=== PATIENT | female | born 1960 | race Caucasian/White ===

== ENCOUNTER 2016-11-16 16:29 | Emergency (ER) | payer OTHER ==
[~2016-11-16 16:29] MED LIST: CHLORTHALIDONE25 MG PO; FISH OIL PO; LIPITOR20 MG PO; LOSARTAN POTASS25 MG PO; MULTIPLE VITAMIN PO; SYNTHROID88 MCG PO; VITAMIN E200 UNIT PO
--- NOTE | 2016-11-16 17:16 | DIAGNOSTIC IMAGING REPORT ---
PROCEDURE: XR CHEST 1 VIEW INDICATION: CHEST PAIN TECHNIQUE: Portable AP view 04:40 p.m. COMPARISON: None. FINDINGS: Mild bibasilar scarring. Heart and mediastinum are normal. Mild dextroconvex thoracolumbar spine scoliosis. IMPRESSION: 1. Mild bibasilar scarring.
--- NOTE | 2016-11-16 18:43 | ED ORDER SUMMARY ---
..... Patient: RON MORTON OrderSheet [facility] VisitID: [id number] [place] [address] 56y, F Registration Date/Time: 11/16/2016 ORDER SHEET Weight: 63.5 kg (stated) Allergies: No Known Drug Allergy GENERAL ORDERS: Chest 1V Urgent (16:46 11/16/2016 Jorge LEIGH) (Ack 16:49 Krysta ER Tech1) (16:59 KKnebel R.N.) Rib Chopper (Continuous) (16:46 11/16/2016 Jorge LEIGH) (Ack 16:49 Krysta ER Tech1) (16:59 KKnebel R.N.) CBC w Diff Urgent (16:47 11/16/2016 Jorge LEIGH) (Ack 16:49 Krysta ER Tech1) (16:59 KKnebel R.N.) CMP Urgent (16:47 11/16/2016 Jorge LEIGH) (Ack 16:49 Krsyta ER Tech1) (16:59 KKnebel R.N.) UA-Culture if indicated Urgent (16:47 11/16/2016 Jorge LEIGH) (Ack 16:49 Krysta VALENZUELA Tech1) (17:13 KKnebel R.N.) PT with INR Urgent (16:47 11/16/2016 Jorge LEIGH) (Ack 16:49 Krysta VALENZUELA Tech1) (16:59 KKnebel R.N.) PTT Urgent (16:47 11/16/2016 Jorge LEIGH) (Ack 16:49 Krysta VALENZUELA Tech1) (16:59 KKnebel R.N.) BNP Urgent (16:47 11/16/2016 Jorge LEIGH) (Ack 16:49 Krysta VALENZUELA Tech1) (16:59 KKnebel R.N.) D-Dimer Urgent (16:47 11/16/2016 Jorge LEIGH) (Ack 16:49 Krysta VALENZUELA Tech1) (16:59 KKnebel R.N.) Amylase Urgent (16:47 11/16/2016 Jorge LEIGH) (Ack 16:49 Krysta ER Tech1) (16:59 KKnebel R.N.) Lipase Urgent (16:47 11/16/2016 Jorge LEIGH) (Ack 16:49 IJurca ER Tech1) (16:59 KKnebel R.N.) Oxygen (2 L/min) (NC) (16:47 11/16/2016 Jorge LEIGH) (Ack 16:49 Krysta ER Tech1) (16:59 KKnebel R.N.) Pulse oximeter (16:47 11/16/2016 Jorge LEIGH) (Ack 16:49 RASHIurca ER Tech1) (16:59 MARSHALLnebel R.N.) EKG - ER Stat (16:47 11/16/2016 Jorge LEIGH) (Ack 16:49 Krysta Posada1) (16:59 KKnebel R.N.) TSH Urgent (17:39 11/16/2016 Jorge LEIGH) (Ack 17:44 Krysta ER Tech1) (18:08 KKnebel R.N.) CPK Urgent (18:13 11/16/2016 Jorge LEIGH) (18:21 KKnebel R.N.) Troponin-I Urgent (18:13 11/16/2016 Jorge LEIGH) (18:21 KKnebel R.N.) MEDICATION ORDERS: Aspirin PO 325 mg (NOW) (16:47 11/16/2016 Jorge LEIGH) (17:14 MARSHALLnepaulina R.N.) IV FLUIDS: IV Saline Lock (16:47 11/16/2016 Jorge LEIGH) (16:59 MARSHALLnebel R.N.) ORDER SHEET NOTES: [Electronically signed by Arnie Gee MD (18:54 11/16/2016)] [Electronically signed by Bhumika Loera R.N. (11:41 11/23/2016)] [Electronically locked/signed by Bhumika Loera R.N. (11:41 11/23/2016)]
--- NOTE | 2016-11-16 18:43 | ED NURSING NOTES ---
Clinical Report - Nurses [facility] [address] [place] [address] 11/16/2016 16:30 Patient: RON MORTON TRIAGE Triage time 16:34 Nov 16 2016. Acuity: LEVEL 3. Chief Complaint: CHEST PAIN. Alert. No acute distress. SEPSIS SCREEN: Sepsis Screen: negative. Negative (no infection suspected/documented). HAROON COMA SCORE: Haroon Coma Scale: 15- eyes open spontaneously (4); best verbal response- oriented x 4 (5); best motor response- obeys commands (6). --16:41 Bhumika Loera R.N. 16:34 11/16/16. BP: 174/90. HR: 91. RR: 16. O2 saturation: 100%. Temp: 98.3 F. Pain level now: 10/29. --16:41 Bhumika Loera R.N. Weight: 63.5 kg stated. Height/Length: 68 inches Per Patient. BMI: 21.3. --16:38 Bhumika Loera R.N. Medications Levothyroxine Sodium Oral 88 mcg, daily. --16:35 Bhumika Loera R.N. Losartan Potassium Oral (Tablet 50 mg) 1 tablet, daily. --16:37 Bhumika Loera R.N. Chlorthalidone Oral (Tablet 25 mg) 1 tablet, daily. --16:37 Bhumika Loera R.N. Atorvastatin Calcium Oral (Tablet 80 mg) 1 tablet, daily. --16:37 Bhumika Loera R.N. Medication/allergy information source: the patient. --16:41 Bhumika Loera R.N. Allergies No Known Drug Allergy. --11:40 Bhumika Loera R.N. History Arrived by private vehicle. Historian: patient. Accompanied by family. Onset. (about 3 days ago). ( pt states that pain started about three days ago and now has moved to the back as well. pt states that she feels like her heart is pounding at times.). Treatment FLEET SALES ASSOCIATE: None. PAST MEDICAL HX: Immunizations: up-to-date. The patient is post-menopausal. Denies current . SOCIAL HX: Never smoker. Occasional alcohol use. No drug use. No infectious disease exposure. SELF HARM ASSESSMENT: A self harm assessment was performed. The patient answered "no" to the question "Do you have thoughts of harming or killing yourself?". FALL RISK ASSESSMENT: Fall risk assessment completed. No fall risk identified. NUTRITIONAL RISK ASSESSMENT: The nutritional risk assessment revealed no deficiencies. FUNCTIONAL ASSESSMENT: Functional assessment: no impairments noted. LEARNING NEEDS ASSESSMENT: The learning needs assessment revealed no barriers. ABUSE ASSESSMENT: Abuse assessment: The patient was asked "Do you feel safe in your home?". SKIN INTEGRITY ASSESSMENT: Skin integrity risk assessment completed. No skin integrity risk identified. --16:41 Bhumika Loera R.N. PROBLEMS: Hypercholesterolemia. Hypothyroidism. Hypertension. --16:38 Bhumika Loera R.N. ADDITIONAL SURGERIES: Eye surgery. --16:38 Bhumika Loera R.N. Interventions ID band on patient. To room. --16:41 Bhumika Loera R.N. PHYSICAL ASSESSMENT GENERAL / NEURO / PSYCH: Alert. Oriented X 4. Appears in no acute distress. RESPIRATORY: Respirations not labored. Sternal tenderness. Breath sounds within normal limits. CVS: Heart sounds within normal limits. Pulses within normal limits. Capillary refill less than 2 seconds. GI / : Abdomen soft and nontender. EXTREMITIES: No lower extremity edema. SKIN: Skin is warm and dry. --16:43 Bhumika Loera R.N. NURSING PROGRESS NOTES Patient gowned. Head of bed elevated. Patient identifiers checked. Call light placed in reach. Side rails up. Bed placed in lowest position. Brakes of bed on. --16:43 Bhumika Loera R.N. EKG time: (1651). EKG was performed by a nurse and shown to the ED physician. --16:58 Bhumika Loera R.N. Portable chest x-ray performed. --16:58 Bhumika Loera R.N. 16:59 11/16/2016 Site #1 started via IV in the right antecubital space with an 20g angiocath, with aseptic technique and good blood return; one attempt. Blood drawn: rainbow set. Labeled in the presence of the patient and sent to the lab. Saline lock flushed with 10 mL saline. --16:59 Bhumika Loera R.N. Patient ID band checked for patient name and birthdate: patient confirmed. Instructions provided to collect clean catch urine and patient verbalized understanding. Clean catch urine collected with return of yellow-colored clear urine; sample sent to lab for urinalysis and culture. Specimen labeled in the presence of the patient. --17:12 Bhumika Loera R.N. 17:14 11/16/2016 Aspirin PO Tablets 325 mg given. Allergies verified and confirmed 5 rights. --17:14 Bhumika Loera R.N. 18:00. Engine Repair Supervisor provided for the general exam by the physician. --18:03 Suri Harrington R.N. 18:00 11/16/16. BP: 147/71. HR: 70. RR: 16. O2 saturation: 99%. --18:50 Bhumika Loera R.N. 17:30 11/16/16. BP: 151/87. HR: 78. RR: 16. O2 saturation: 100%. Pain level now: 5/10. --18:50 Bhumika Loera R.N. 18:53 11/16/2016 Site #1 removed upon discharge. Bandage applied. --18:53 Bhumika Loera R.N. DISPOSITION / DISCHARGE Departure time: :Nov 16 2016. Condition at departure: unchanged. No learning barriers present. Discharge instructions provided and reviewed with the patient. Reviewed medication(s) side effects, precautions, dosing and course information. Reviewed referral to a health care manager and primary care physician. Patient verbalized understanding. Written instructions provided in Polish. The patient was discharged home and accompanied by spouse. She left the Emergency Department ambulatory and via private vehicle. Spouse driving. FALL RISK ASSESSMENT: Fall risk assessment completed. No fall risk identified. --18:52 Bhumika Loera R.N. 18:30 11/16/16. BP: 156/91. HR: 79. RR: 16. O2 saturation: 97%. Pain level now: 11/28. --18:52 Bhumika Loera R.N. Locked/Released at 11/23/2016 11:41 by Bhumika Loera R.N.
--- NOTE | 2016-11-16 18:43 | ED CLINICAL REPORT ---
Clinical Report - Physicians/Mid Levels [facility] [address] [place] [address] 11/16/2016 16:30 Patient: RON MORTON Time Seen: 16:41. Arrived- By private vehicle. Historian- patient. HISTORY OF PRESENT ILLNESS Chief Complaint: CHEST PAIN. This started several days ago and is still present. It was abrupt in onset and has been intermittent and waxing/waning. Onset during light activity. At its maximum, severity described as 6 / 10. When seen in the E.D., it was gone. Modifying factors- worsened by exertion, movement and deep breaths. Relieved by rest. (She says specifically that twisting her torso and moving her upper extremities is what brings the pain on). It is described as pressure and it is described as located in the central chest area and radiating to the upper back. No nausea, vomiting or difficulty breathing. She has experienced diaphoresis (yesterday). Similar symptoms previously: None. REVIEW OF SYSTEMS No chills, fever, sweats, calf pain or cough. No pedal edema, abdominal pain, black stools, bloody stools or constipation. No diarrhea, nausea, vomiting or urinary problems. She has had palpitations (chronically). The palpitations feel like skipped beats. All systems otherwise negative, except as recorded above. PAST HISTORY PCP - Stephanie. Problems: Hypercholesterolemia. Hypothyroidism. Hypertension. Additional Surgeries: Eye surgery. Medications: Atorvastatin Calcium Oral (Tablet 80 mg) 1 tablet, daily. Chlorthalidone Oral (Tablet 25 mg) 1 tablet, daily. Losartan Potassium Oral (Tablet 50 mg) 1 tablet, daily. Levothyroxine Sodium Oral 88 mcg, daily. SOCIAL HISTORY Never smoker. Occasional alcohol use. No drug use. She lives with spouse. Has good social support. FAMILY HISTORY Heart disease in first-degree relative (father and sibling). ADDITIONAL NOTES The nursing notes have been reviewed. PHYSICAL EXAM Vital Signs: 11/16/2016 16:34 BP: 174/90. HR: 91. RR: 16. O2 saturation: 100%. Temp: 98.3 F. Pain level now: 4/10. Have been reviewed. Appearance: Alert. Eyes: Pupils equal, round and reactive to light. ENT: Pharynx normal. Neck: Normal inspection. Neck supple. CVS: Normal heart rate and rhythm. Heart sounds normal. Respiratory: No respiratory distress. Breath sounds normal. Abdomen: Soft and nontender. Bowel sounds normal. No organomegaly. No mass. Back: Normal external inspection. No CVA tenderness. Skin: Skin warm and dry. Normal skin color. Normal skin turgor. Extremities: Extremities exhibit normal ROM. No calf tenderness. No lower extremity edema. LABS, X-RAYS, AND EKG EKG: Normal sinus rhythm. Rate: 71. Non-specific ST segment / T wave abnormalities. Changes present when compared to prior EKG. (23 February 2015 at that time there was some mild right axis deviation otherwise unchanged today.) No new ischemic changes present. Chest X-ray: (PROCEDURE: XR CHEST 1 VIEW INDICATION: CHEST PAIN TECHNIQUE: Portable AP view 04:40 p.m. COMPARISON: None. FINDINGS: Mild bibasilar scarring. Heart and mediastinum are normal. Mild dextroconvex thoracolumbar spine scoliosis. IMPRESSION: 1. Mild bibasilar scarring.). The X-rays were interpreted by the radiologist and contemporaneously by me. Laboratory Tests: UA-Culture if indicated: (RAMILA: 11/16/2016 17:06) ( MsgRcvd 11/16/2016 17:28) Final results Test Result Flag Units (Reference) URINE COLOR YELLOW URINE APPEARANCE CLEAR URINE GLUCOSE NEGATIVE (NEGATIVE) URINE BILIRUBIN NEGATIVE (NEGATIVE) URINE KETONE TRACE (NEGATIVE) URINE SPECIFIC GRAVITY <= 1.005 L (1.010-1.030) URINE PH 7.0 (5.0-8.0) URINE PROTEIN NEGATIVE (NEGATIVE) URINE UROBILINOGEN 0.2 EU/dL (0.2-1.0) URINE NITRITE NEGATIVE (NEGATIVE) URINE BLOOD NEGATIVE (NEGATIVE) URINE LEUK ESTERASE NEGATIVE (NEGATIVE) URINE RBC 0-1 rbc/hpf (0-1) URINE WBC 0-1 wbc/hpf (0-1) URINE EPITHELIAL CELLS 0-1 EPI/hpf (0-5) URINE BACTERIA NONE SEEN (NONE SEEN) URINE COMMENT CULT NOT INDICATED URINE CULTURES ARE SET-UP BASED ON THE FOLLOWING CRITERIA:POSITIVE NITRITEPOSITIVE LEUKOCYTE ESTERASEGREATER THAN 10 WHITE BLOOD CELLSMODERATE (2+) OR GREATER BACTERIA CBC w Diff: (RAMILA: 11/16/2016 16:58) ( MsgRcvd 11/16/2016 17:12) Final results Test Result Flag Units (Reference) WHITE BLOOD COUNT 8.7 K/uL (4.5-11.5) RED BLOOD COUNT 4.48 M/uL (4.00-5.20) HEMOGLOBIN 13.5 gm/dL (12.0-16.0) HEMATOCRIT 41.0 % (36.0-46.0) MEAN CELL VOLUME 91 fL (80-100) MEAN CORPUSCULAR HGB 30 pg (26-34) MEAN CORPUSCULAR HGB CONC 33 g/dL (31-37) RED CELL DISTRIBUTION WIDTH 13.0 % (11.6-14.8) PLATELET COUNT 235 K/uL (150-400) NEUTROPHIL % 50.1 % (50-75) LYMPH % 39.6 % (25-40) MONO % 7.5 % (3-14) EOSINOPHIL % 2.4 % (0-4) BASOPHIL % 0.4 % (0-2) PT with INR: (RAMILA: 11/16/2016 16:58) ( MsgRcvd 11/16/2016 17:18) Final results Test Result Flag Units (Reference) INR 0.9 (0.8-1.2) Low Intensity Therapy: INR 1.5-2.0 PT range 18.5-23.1Mod.Intensity Therapy: INR 2.0-3.0 PT range 23.1-31.5High Intensity Therapy: INR 2.5-3.5 PT range 27.4-35.5High Intensity Therapy 2: INR 3.0-4.0 PT range 31.5-39.3 APTT 28 SECONDS (24-34) D-DIMER QUANTITATIVE < 0.27 L ug/mLFEU (0.27-0.52) The primary value of this quantitative assay relates toits negative predictive value (i.e. exclusion) of pulmonaryembolism/deep vein thrombosis/DIC.Elevated levels of d-dimer may also occur with:, age, cancer, inflammation, liver disease,post-op, infection, hematoma, coronary disease, peripheralarteriopathy, bleeding disorders and thrombolytic treatment.Results should be correlated with other clinical andradiological data.Testing Methodology: Latex Immunoassay CPK: (RAMILA: 11/16/2016 18:16) ( [facility] 11/16/2016 18:32) Final results Test Result Flag Units (Reference) CPK 92 U/L (24-260) TROPONIN I <0.05 ng/mL (0.00-1.5) TROPONIN REFERENCE RANGE:<0.1 NEGATIVE0.1-1.5 INDETERMINANT>1.5 POSITIVE TSH: (RAMILA: 11/16/2016 17:45) ( [facility] 11/16/2016 18:06) Final results Test Result Flag Units (Reference) THYROID STIMULATING HORMONE 0.668 uIU/mL (0.30-3.74) BNP: (RAMILA: 11/16/2016 16:58) ( [facility] 11/16/2016 17:38) Final results Test Result Flag Units (Reference) B-TYPE NATRIURETIC PEPTIDE 35.2 pg/ml (5-100) CMP: (RAMILA: 11/16/2016 16:58) ( [facility] 11/16/2016 17:22) Final results Test Result Flag Units (Reference) GLUCOSE 108 mg/dL (70-110) BUN 12 mg/dL (7-18) CREATININE 0.8 mg/dL (0.6-1.3) Estimated GFR >60 mL/min Estimated GFR- >60 mL/min Note: Persistent reduction over 3 months in eGFR<60 mL/min/1.73 m2 defines CKD. Patients with eGFR values>=60 mL/min/1.73 m2 may also have CKD if evidence ofpersistent proteinuria. Additional information may be foundat www.kidney.org. SODIUM 143 mmol/L (136-145) POTASSIUM 3.8 mmol/L (3.5-5.1) CHLORIDE 103 mmol/L (98-107) CARBON DIOXIDE 26 mmol/L (21-32) CALCIUM 9.0 mg/dL (8.5-10.1) TOTAL PROTEIN 7.7 g/dL (6.4-8.2) ALBUMIN 3.9 g/dL (3.3-5.0) BILIRUBIN, TOTAL 0.7 mg/dL (0.0-1.0) ALKALINE PHOSPHATASE 77 U/L (46-116) AST (SGOT) 28 U/L (15-37) ALT (SGPT) 36 U/L (12-78) LIPASE 197 U/L (73-393) AMYLASE 72 U/L (25-115) . PROGRESS AND PROCEDURES Patient/family counseled. Old medical records ordered. Old records unavailable. Disposition: Discharged. Condition: stable. CLINICAL IMPRESSION Atypical chest pain Possible chest wall pain INSTRUCTIONS No strenuous activity. Warnings: Further evaluation is necessary. GENERAL WARNINGS: Return or contact your physician immediately if your condition worsens or changes unexpectedly, if not improving as expected, or if other problems arise. Your Current Medications: CONTINUE TAKING THE FOLLOWING MEDICATIONS: Atorvastatin Calcium Oral : Tablet 80 mg, 1 tablet daily. Chlorthalidone Oral : Tablet 25 mg, 1 tablet daily. Levothyroxine Sodium Oral : 88 mcg daily. Losartan Potassium Oral : Tablet 50 mg, 1 tablet daily. OTC Medications: Aspirin (available over the counter): take according to label instructions. Follow-up: Follow up with a water safety teacher- as recommended by your primary care physician. Understanding of the discharge instructions verbalized by patient. Follow-up with: Mendez Brown MD, [facility], , [address] [place] [address], [phone] Follow up Saturday in three days. Call for an appointment. (Electronically signed by Arnie Gee MD 11/16/2016 18:54) Ricarda RON Castellanos VisitID: [id number] Date: 11/16/2016 11/16/2016 18:55 I discussed the patient's blood pressures with her. She reports that sshe normally takes her blood pressure medication at night and is due to do so shortly (Electronically signed by Arnie Gee MD - 11/16/2016 18:55)
--- NOTE | 2016-11-16 18:43 | ED ORDER SUMMARY ---
..... Patient: RON MORTON OrderSheet [facility] VisitID: [id number] [place] [address] 56y, F Registration Date/Time: 11/16/2016 ORDER SHEET Weight: 63.5 kg (stated) Allergies: No Known Drug Allergy GENERAL ORDERS: Chest 1V Urgent (16:46 11/16/2016 Jorge LEIGH) (Ack 16:49 Krysta ER Tech1) (16:59 KKnebel R.N.) Thermal Intelligence Analyst (Continuous) (16:46 11/16/2016 Jorge LEIGH) (Ack 16:49 Krysta ER Tech1) (16:59 KKnebel R.N.) CBC w Diff Urgent (16:47 11/16/2016 Jorge LEIGH) (Ack 16:49 Krysta ER Tech1) (16:59 KKnebel R.N.) CMP Urgent (16:47 11/16/2016 Jorge LEIGH) (Ack 16:49 Krysta ER Tech1) (16:59 KKnebel R.N.) UA-Culture if indicated Urgent (16:47 11/16/2016 Jorge LEIGH) (Ack 16:49 Krysta VALENZUELA Tech1) (17:13 KKnebel R.N.) PT with INR Urgent (16:47 11/16/2016 Jorge LEIGH) (Ack 16:49 Krysta VALENZUELA Tech1) (16:59 KKnebel R.N.) PTT Urgent (16:47 11/16/2016 Jorge LEIGH) (Ack 16:49 Krysta VALENZUELA Tech1) (16:59 KKnebel R.N.) BNP Urgent (16:47 11/16/2016 Jorge LEIGH) (Ack 16:49 Krysta VALENZUELA Tech1) (16:59 KKnebel R.N.) D-Dimer Urgent (16:47 11/16/2016 Jorge LEIGH) (Ack 16:49 Krysta VALENZUELA Tech1) (16:59 KKnebel R.N.) Amylase Urgent (16:47 11/16/2016 Jorge LEIGH) (Ack 16:49 Krysta ER Tech1) (16:59 KKnebel R.N.) Lipase Urgent (16:47 11/16/2016 Jorge LEIGH) (Ack 16:49 IJurca ER Tech1) (16:59 KKnebel R.N.) Oxygen (2 L/min) (NC) (16:47 11/16/2016 Jorge LEIGH) (Ack 16:49 Krysta ER Tech1) (16:59 KKnebel R.N.) Pulse oximeter (16:47 11/16/2016 Jorge LEIGH) (Ack 16:49 RASHIurca ER Tech1) (16:59 MARSHALLnebel R.N.) EKG - ER Stat (16:47 11/16/2016 Jorge LEIGH) (Ack 16:49 Krysta Posada1) (16:59 KKnebel R.N.) TSH Urgent (17:39 11/16/2016 Jorge LEIGH) (Ack 17:44 Krysta ER Tech1) (18:08 KKnebel R.N.) CPK Urgent (18:13 11/16/2016 Jorge LEIGH) (18:21 KKnebel R.N.) Troponin-I Urgent (18:13 11/16/2016 Jorge LEIGH) (18:21 KKnebel R.N.) MEDICATION ORDERS: Aspirin PO 325 mg (NOW) (16:47 11/16/2016 Jorge LEIGH) (17:14 MARSHALLnepaulina R.N.) IV FLUIDS: IV Saline Lock (16:47 11/16/2016 Jorge LEIGH) (16:59 MARSHALLnebel R.N.) ORDER SHEET NOTES: [Electronically signed by Arnie Gee MD (18:54 11/16/2016)] [Electronically signed by Bhumika Loera R.N. (11:41 11/23/2016)] [Electronically locked/signed by Bhumika Loera R.N. (11:41 11/23/2016)]
--- NOTE | 2016-11-16 18:43 | ED CLINICAL REPORT ---
Clinical Report - Physicians/Mid Levels [facility] [address] [place] [address] 11/16/2016 16:30 Patient: RON MORTON Time Seen: 16:41. Arrived- By private vehicle. Historian- patient. HISTORY OF PRESENT ILLNESS Chief Complaint: CHEST PAIN. This started several days ago and is still present. It was abrupt in onset and has been intermittent and waxing/waning. Onset during light activity. At its maximum, severity described as 6 / 10. When seen in the E.D., it was gone. Modifying factors- worsened by exertion, movement and deep breaths. Relieved by rest. (She says specifically that twisting her torso and moving her upper extremities is what brings the pain on). It is described as pressure and it is described as located in the central chest area and radiating to the upper back. No nausea, vomiting or difficulty breathing. She has experienced diaphoresis (yesterday). Similar symptoms previously: None. REVIEW OF SYSTEMS No chills, fever, sweats, calf pain or cough. No pedal edema, abdominal pain, black stools, bloody stools or constipation. No diarrhea, nausea, vomiting or urinary problems. She has had palpitations (chronically). The palpitations feel like skipped beats. All systems otherwise negative, except as recorded above. PAST HISTORY PCP - Stephanie. Problems: Hypercholesterolemia. Hypothyroidism. Hypertension. Additional Surgeries: Eye surgery. Medications: Atorvastatin Calcium Oral (Tablet 80 mg) 1 tablet, daily. Chlorthalidone Oral (Tablet 25 mg) 1 tablet, daily. Losartan Potassium Oral (Tablet 50 mg) 1 tablet, daily. Levothyroxine Sodium Oral 88 mcg, daily. SOCIAL HISTORY Never smoker. Occasional alcohol use. No drug use. She lives with spouse. Has good social support. FAMILY HISTORY Heart disease in first-degree relative (father and sibling). ADDITIONAL NOTES The nursing notes have been reviewed. PHYSICAL EXAM Vital Signs: 11/16/2016 16:34 BP: 174/90. HR: 91. RR: 16. O2 saturation: 100%. Temp: 98.3 F. Pain level now: 4/10. Have been reviewed. Appearance: Alert. Eyes: Pupils equal, round and reactive to light. ENT: Pharynx normal. Neck: Normal inspection. Neck supple. CVS: Normal heart rate and rhythm. Heart sounds normal. Respiratory: No respiratory distress. Breath sounds normal. Abdomen: Soft and nontender. Bowel sounds normal. No organomegaly. No mass. Back: Normal external inspection. No CVA tenderness. Skin: Skin warm and dry. Normal skin color. Normal skin turgor. Extremities: Extremities exhibit normal ROM. No calf tenderness. No lower extremity edema. LABS, X-RAYS, AND EKG EKG: Normal sinus rhythm. Rate: 71. Non-specific ST segment / T wave abnormalities. Changes present when compared to prior EKG. (23 February 2015 at that time there was some mild right axis deviation otherwise unchanged today.) No new ischemic changes present. Chest X-ray: (PROCEDURE: XR CHEST 1 VIEW INDICATION: CHEST PAIN TECHNIQUE: Portable AP view 04:40 p.m. COMPARISON: None. FINDINGS: Mild bibasilar scarring. Heart and mediastinum are normal. Mild dextroconvex thoracolumbar spine scoliosis. IMPRESSION: 1. Mild bibasilar scarring.). The X-rays were interpreted by the radiologist and contemporaneously by me. Laboratory Tests: UA-Culture if indicated: (RAMILA: 11/16/2016 17:06) ( MsgRcvd 11/16/2016 17:28) Final results Test Result Flag Units (Reference) URINE COLOR YELLOW URINE APPEARANCE CLEAR URINE GLUCOSE NEGATIVE (NEGATIVE) URINE BILIRUBIN NEGATIVE (NEGATIVE) URINE KETONE TRACE (NEGATIVE) URINE SPECIFIC GRAVITY <= 1.005 L (1.010-1.030) URINE PH 7.0 (5.0-8.0) URINE PROTEIN NEGATIVE (NEGATIVE) URINE UROBILINOGEN 0.2 EU/dL (0.2-1.0) URINE NITRITE NEGATIVE (NEGATIVE) URINE BLOOD NEGATIVE (NEGATIVE) URINE LEUK ESTERASE NEGATIVE (NEGATIVE) URINE RBC 0-1 rbc/hpf (0-1) URINE WBC 0-1 wbc/hpf (0-1) URINE EPITHELIAL CELLS 0-1 EPI/hpf (0-5) URINE BACTERIA NONE SEEN (NONE SEEN) URINE COMMENT CULT NOT INDICATED URINE CULTURES ARE SET-UP BASED ON THE FOLLOWING CRITERIA:POSITIVE NITRITEPOSITIVE LEUKOCYTE ESTERASEGREATER THAN 10 WHITE BLOOD CELLSMODERATE (2+) OR GREATER BACTERIA CBC w Diff: (RAMILA: 11/16/2016 16:58) ( MsgRcvd 11/16/2016 17:12) Final results Test Result Flag Units (Reference) WHITE BLOOD COUNT 8.7 K/uL (4.5-11.5) RED BLOOD COUNT 4.48 M/uL (4.00-5.20) HEMOGLOBIN 13.5 gm/dL (12.0-16.0) HEMATOCRIT 41.0 % (36.0-46.0) MEAN CELL VOLUME 91 fL (80-100) MEAN CORPUSCULAR HGB 30 pg (26-34) MEAN CORPUSCULAR HGB CONC 33 g/dL (31-37) RED CELL DISTRIBUTION WIDTH 13.0 % (11.6-14.8) PLATELET COUNT 235 K/uL (150-400) NEUTROPHIL % 50.1 % (50-75) LYMPH % 39.6 % (25-40) MONO % 7.5 % (3-14) EOSINOPHIL % 2.4 % (0-4) BASOPHIL % 0.4 % (0-2) PT with INR: (RAMILA: 11/16/2016 16:58) ( MsgRcvd 11/16/2016 17:18) Final results Test Result Flag Units (Reference) INR 0.9 (0.8-1.2) Low Intensity Therapy: INR 1.5-2.0 PT range 18.5-23.1Mod.Intensity Therapy: INR 2.0-3.0 PT range 23.1-31.5High Intensity Therapy: INR 2.5-3.5 PT range 27.4-35.5High Intensity Therapy 2: INR 3.0-4.0 PT range 31.5-39.3 APTT 28 SECONDS (24-34) D-DIMER QUANTITATIVE < 0.27 L ug/mLFEU (0.27-0.52) The primary value of this quantitative assay relates toits negative predictive value (i.e. exclusion) of pulmonaryembolism/deep vein thrombosis/DIC.Elevated levels of d-dimer may also occur with:, age, cancer, inflammation, liver disease,post-op, infection, hematoma, coronary disease, peripheralarteriopathy, bleeding disorders and thrombolytic treatment.Results should be correlated with other clinical andradiological data.Testing Methodology: Latex Immunoassay CPK: (RAMILA: 11/16/2016 18:16) ( [facility] 11/16/2016 18:32) Final results Test Result Flag Units (Reference) CPK 92 U/L (24-260) TROPONIN I <0.05 ng/mL (0.00-1.5) TROPONIN REFERENCE RANGE:<0.1 NEGATIVE0.1-1.5 INDETERMINANT>1.5 POSITIVE TSH: (RAMILA: 11/16/2016 17:45) ( [facility] 11/16/2016 18:06) Final results Test Result Flag Units (Reference) THYROID STIMULATING HORMONE 0.668 uIU/mL (0.30-3.74) BNP: (RAMILA: 11/16/2016 16:58) ( [facility] 11/16/2016 17:38) Final results Test Result Flag Units (Reference) B-TYPE NATRIURETIC PEPTIDE 35.2 pg/ml (5-100) CMP: (RAMILA: 11/16/2016 16:58) ( [facility] 11/16/2016 17:22) Final results Test Result Flag Units (Reference) GLUCOSE 108 mg/dL (70-110) BUN 12 mg/dL (7-18) CREATININE 0.8 mg/dL (0.6-1.3) Estimated GFR >60 mL/min Estimated GFR- >60 mL/min Note: Persistent reduction over 3 months in eGFR<60 mL/min/1.73 m2 defines CKD. Patients with eGFR values>=60 mL/min/1.73 m2 may also have CKD if evidence ofpersistent proteinuria. Additional information may be foundat www.kidney.org. SODIUM 143 mmol/L (136-145) POTASSIUM 3.8 mmol/L (3.5-5.1) CHLORIDE 103 mmol/L (98-107) CARBON DIOXIDE 26 mmol/L (21-32) CALCIUM 9.0 mg/dL (8.5-10.1) TOTAL PROTEIN 7.7 g/dL (6.4-8.2) ALBUMIN 3.9 g/dL (3.3-5.0) BILIRUBIN, TOTAL 0.7 mg/dL (0.0-1.0) ALKALINE PHOSPHATASE 77 U/L (46-116) AST (SGOT) 28 U/L (15-37) ALT (SGPT) 36 U/L (12-78) LIPASE 197 U/L (73-393) AMYLASE 72 U/L (25-115) . PROGRESS AND PROCEDURES Patient/family counseled. Old medical records ordered. Old records unavailable. Disposition: Discharged. Condition: stable. CLINICAL IMPRESSION Atypical chest pain Possible chest wall pain INSTRUCTIONS No strenuous activity. Warnings: Further evaluation is necessary. GENERAL WARNINGS: Return or contact your physician immediately if your condition worsens or changes unexpectedly, if not improving as expected, or if other problems arise. Your Current Medications: CONTINUE TAKING THE FOLLOWING MEDICATIONS: Atorvastatin Calcium Oral : Tablet 80 mg, 1 tablet daily. Chlorthalidone Oral : Tablet 25 mg, 1 tablet daily. Levothyroxine Sodium Oral : 88 mcg daily. Losartan Potassium Oral : Tablet 50 mg, 1 tablet daily. OTC Medications: Aspirin (available over the counter): take according to label instructions. Follow-up: Follow up with a weight and balance control agent- as recommended by your primary care physician. Understanding of the discharge instructions verbalized by patient. Follow-up with: Mendez Brown MD, [facility], , [address] [place] [address], [phone] Follow up Saturday in three days. Call for an appointment. (Electronically signed by Arnie Gee MD 11/16/2016 18:54) Ricarda RON Castellanos VisitID: [id number] Date: 11/16/2016 11/16/2016 18:55 I discussed the patient's blood pressures with her. She reports that sshe normally takes her blood pressure medication at night and is due to do so shortly (Electronically signed by Arnie Gee MD - 11/16/2016 18:55)
--- NOTE | 2016-11-16 18:43 | ED NURSING NOTES ---
Clinical Report - Nurses [facility] [address] [place] [address] 11/16/2016 16:30 Patient: RON MORTON TRIAGE Triage time 16:34 Nov 16 2016. Acuity: LEVEL 3. Chief Complaint: CHEST PAIN. Alert. No acute distress. SEPSIS SCREEN: Sepsis Screen: negative. Negative (no infection suspected/documented). HAROON COMA SCORE: Haroon Coma Scale: 15- eyes open spontaneously (4); best verbal response- oriented x 4 (5); best motor response- obeys commands (6). --16:41 Bhumika Loera R.N. 16:34 11/16/16. BP: 174/90. HR: 91. RR: 16. O2 saturation: 100%. Temp: 98.3 F. Pain level now: 10/29. --16:41 Bhumika Loera R.N. Weight: 63.5 kg stated. Height/Length: 68 inches Per Patient. BMI: 21.3. --16:38 Bhumika Loera R.N. Medications Levothyroxine Sodium Oral 88 mcg, daily. --16:35 Bhumika Loera R.N. Losartan Potassium Oral (Tablet 50 mg) 1 tablet, daily. --16:37 Bhumika Loera R.N. Chlorthalidone Oral (Tablet 25 mg) 1 tablet, daily. --16:37 Bhumika Loera R.N. Atorvastatin Calcium Oral (Tablet 80 mg) 1 tablet, daily. --16:37 Bhumika Loera R.N. Medication/allergy information source: the patient. --16:41 Bhumika Loera R.N. Allergies No Known Drug Allergy. --11:40 Bhumika Loera R.N. History Arrived by private vehicle. Historian: patient. Accompanied by family. Onset. (about 3 days ago). ( pt states that pain started about three days ago and now has moved to the back as well. pt states that she feels like her heart is pounding at times.). 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 PAST MEDICAL HX: Immunizations: up-to-date. The patient is post-menopausal. Denies current . SOCIAL HX: Never smoker. Occasional alcohol use. No drug use. No infectious disease exposure. SELF HARM ASSESSMENT: A self harm assessment was performed. The patient answered "no" to the question "Do you have thoughts of harming or killing yourself?". FALL RISK ASSESSMENT: Fall risk assessment completed. No fall risk identified. NUTRITIONAL RISK ASSESSMENT: The nutritional risk assessment revealed no deficiencies. FUNCTIONAL ASSESSMENT: Functional assessment: no impairments noted. LEARNING NEEDS ASSESSMENT: The learning needs assessment revealed no barriers. ABUSE ASSESSMENT: Abuse assessment: The patient was asked "Do you feel safe in your home?". SKIN INTEGRITY ASSESSMENT: Skin integrity risk assessment completed. No skin integrity risk identified. --16:41 Bhumika Loera R.N. PROBLEMS: Hypercholesterolemia. Hypothyroidism. Hypertension. --16:38 Bhumika Loera R.N. ADDITIONAL SURGERIES: Eye surgery. --16:38 Bhumika Loera R.N. Interventions ID band on patient. To room. --16:41 Bhumika Loera R.N. PHYSICAL ASSESSMENT GENERAL / NEURO / PSYCH: Alert. Oriented X 4. Appears in no acute distress. RESPIRATORY: Respirations not labored. Sternal tenderness. Breath sounds within normal limits. CVS: Heart sounds within normal limits. Pulses within normal limits. Capillary refill less than 2 seconds. GI / : Abdomen soft and nontender. EXTREMITIES: No lower extremity edema. SKIN: Skin is warm and dry. --16:43 Bhumika Loera R.N. NURSING PROGRESS NOTES Patient gowned. Head of bed elevated. Patient identifiers checked. Call light placed in reach. Side rails up. Bed placed in lowest position. Brakes of bed on. --16:43 Bhumika Loera R.N. EKG time: (1651). EKG was performed by a nurse and shown to the ED physician. --16:58 Bhumika Loera R.N. Portable chest x-ray performed. --16:58 Bhumika Loera R.N. 16:59 11/16/2016 Site #1 started via IV in the right antecubital space with an 20g angiocath, with aseptic technique and good blood return; one attempt. Blood drawn: rainbow set. Labeled in the presence of the patient and sent to the lab. Saline lock flushed with 10 mL saline. --16:59 Bhumika Loera R.N. Patient ID band checked for patient name and birthdate: patient confirmed. Instructions provided to collect clean catch urine and patient verbalized understanding. Clean catch urine collected with return of yellow-colored clear urine; sample sent to lab for urinalysis and culture. Specimen labeled in the presence of the patient. --17:12 Bhumika Loera R.N. 17:14 11/16/2016 Aspirin PO Tablets 325 mg given. Allergies verified and confirmed 5 rights. --17:14 Bhumika Loera R.N. 18:00. Locum Tenens Psychiatrist provided for the general exam by the physician. --18:03 Suri Harrington R.N. 18:00 11/16/16. BP: 147/71. HR: 70. RR: 16. O2 saturation: 99%. --18:50 Bhumika Loera R.N. 17:30 11/16/16. BP: 151/87. HR: 78. RR: 16. O2 saturation: 100%. Pain level now: 5/10. --18:50 Bhumika Loera R.N. 18:53 11/16/2016 Site #1 removed upon discharge. Bandage applied. --18:53 Bhumika Loera R.N. DISPOSITION / DISCHARGE Departure time: :Nov 16 2016. Condition at departure: unchanged. No learning barriers present. Discharge instructions provided and reviewed with the patient. Reviewed medication(s) side effects, precautions, dosing and course information. Reviewed referral to a retail field supervisor and primary care physician. Patient verbalized understanding. Written instructions provided in Amharic. The patient was discharged home and accompanied by spouse. She left the Emergency Department ambulatory and via private vehicle. Spouse driving. FALL RISK ASSESSMENT: Fall risk assessment completed. No fall risk identified. --18:52 Bhumika Loera R.N. 18:30 11/16/16. BP: 156/91. HR: 79. RR: 16. O2 saturation: 97%. Pain level now: 11/28. --18:52 Bhumika Loera R.N. Locked/Released at 11/23/2016 11:41 by Bhumika Loera R.N.
--- NOTE | 2016-11-23 11:41 | ED DISCHARGE INSTRUCTIONS ---
Patient: RON MORTON General Instructions [facility] VisitID: [id number] [place] [id number] 56y, F Registration Date/Time: 11/16/2016 Atypical chest pain INSTRUCTIONS No strenuous activity. Warnings: Further evaluation is necessary. GENERAL WARNINGS: Return or contact your physician immediately if your condition worsens or changes unexpectedly, if not improving as expected, or if other problems arise. Your Current Medications: CONTINUE TAKING THE FOLLOWING MEDICATIONS: Atorvastatin Calcium Oral : Tablet 80 mg, 1 tablet daily. Chlorthalidone Oral : Tablet 25 mg, 1 tablet daily. Levothyroxine Sodium Oral : 88 mcg daily. Losartan Potassium Oral : Tablet 50 mg, 1 tablet daily. OTC Medications: Aspirin (available over the counter): take according to label instructions. Follow-up: Follow up with a nut picker- as recommended by your primary care physician. Understanding of the discharge instructions verbalized by patient. Follow-up with: Mendez Brown MD, [facility], , [address] [place] [address] Follow up Saturday in three days. Call for an appointment. ADDITIONAL INFORMATION Chest Pain, Uncertain Cause Chest pain can happen for a number of reasons. Sometimes the cause can not be determined. If yourcondition does not seem serious, and your pain does not appear to be coming from your heart, your doctor may recommend watching it closely. Sometimes the signs of a serious problem take more time to appear. Therefore, watch for the warning signs listed below. Home care After your visit, follow these recommendations: Rest today and avoid strenuous activity. Take any prescribed medicine as directed. Follow-up care Follow up with your doctor or this facility as instructed or if you do not start to feel better within 24 hours. Call 911 Get immediate medical attention if any of the following occur: A change in the type of pain: if it feels different, becomes more severe, lasts longer, or begins to spread into your shoulder, arm, neck, jaw or back Shortness of breath or increased pain with breathing Weakness, dizziness, or fainting Rapid heart beat Get prompt medical attention Call your doctor right away if any of the following occur: Cough with dark colored sputum (phlegm) or blood Fever of 100.4F(38C) or higher, or as directed by your health care provider Swelling, pain or redness in one leg Chest Wall Pain: Costochondritis The chest pain that you have had today is caused by Costochondritis. This condition is due to an inflammation of the cartilage joining the ribs to the breastbone. It is not caused by heart or lung problems. Although the exact cause for costochondritis is not known, it often occurs during times of emotional stress. It can be painful, but it is not dangerous. It usually disappears within one to two weeks, but may recur. Rarely, a more serious condition may cause symptoms similar to costochondritis; therefore, watch for the warning signs listed below. Home Care: If you feel that emotional stress is a cause of your condition, try to identify sources of that stress. It may not be obvious! Learn ways to deal with the stress in your life such as regular exercise, muscle relaxation, meditation, or simply taking time out for yourself. For more information about this, consult your doctor or go to a local bookstore and review books and tapes available on the subject of stress reduction. You may use acetaminophen (Tylenol) or ibuprofen (Motrin, Advil) to control pain, unless another pain medicine was prescribed. [ NOTE: If you have liver disease or ever had a stomach ulcer, talk with your doctor before using these medicines.] The use of heat (hot wet compress or heating pad) with or without local analgesic creams (Deep Heat Rub, Bassam Dupree) will be helpful to reduce pain. Follow Up with your doctor as directed or sooner if you do not start to improve within the next two days. Get Prompt Medical Attention if any of the following occur: A change in the type of pain: if it feels different, becomes more severe, lasts longer, or spreads into your shoulder, arm, neck, jaw or back Shortness of breath or increased pain with breathing Weakness, dizziness, or fainting Cough with dark colored sputum (phlegm) or blood Abdominal pain Dark red or black stools Fever of 100.4F (38C) or higher, or as directed by your healthcare provider You have been given the following additional information: Chest Pain, Uncertain Cause Chest Wall Pain, Costochondritis No strenuous activity. (Electronically signed by Arnie Gee MD 11/16/2016 18:54)
--- NOTE | 2016-11-23 11:41 | ED MAR SUMMARY ---
..... Medication Administration Record Merged With [facility] [address] [place] [address] Patient: RON MORTNO Visit ID: [id number] 56y, F Weight: 63.5 kg Height/Length: 68 in BMI: 21.3 ALLERGIES: No Known Drug Allergy Given 17:14 11/16/2016 Bhumika Loera R.N. Medication Administered: ASPIRIN [PO], Dose: 325 mg Tablets PO. Medication Ordered: Aspirin PO 325 mg (NOW).
--- NOTE | 2016-11-23 11:41 | ED MED RECONCILIATION SUMMARY ---
Patient: RON MORTON Medication Reconciliation Report [facility] VisitID: [id number] [address] [place] [address] 56y, F Registration Date/Time: 11/16/2016 Weight: 63.5 kg Height/Length: 68 in. BMI: 21.3 ALLERGIES: No Known Drug Allergy The patient's Home Medications are listed below: CONTINUE TAKING THE FOLLOWING MEDICATIONS: Atorvastatin Calcium Oral (80 mg) 1 tablet, daily Chlorthalidone Oral (25 mg) 1 tablet, daily Levothyroxine Sodium Oral 88 mcg, daily Losartan Potassium Oral (50 mg) 1 tablet, daily The source(s) of the original Home Medication information: patient The following Medications were given to the patient in the Emergency Department: Aspirin [PO] PO 325 mg, administered: 11/16/2016 5:14:00 PM The following Medications were prescribed to the patient: Aspirin (available over the counter): take according to label instructions. -- Arnie Gee MD
--- NOTE | 2016-11-23 11:41 | ED DISCHARGE INSTRUCTIONS ---
Patient: RON MORTON General Instructions [facility] VisitID: [id number] [place], [place] [id number] 56y, F Registration Date/Time: 11/16/2016 Atypical chest pain INSTRUCTIONS No strenuous activity. Warnings: Further evaluation is necessary. GENERAL WARNINGS: Return or contact your physician immediately if your condition worsens or changes unexpectedly, if not improving as expected, or if other problems arise. Your Current Medications: CONTINUE TAKING THE FOLLOWING MEDICATIONS: Atorvastatin Calcium Oral : Tablet 80 mg, 1 tablet daily. Chlorthalidone Oral : Tablet 25 mg, 1 tablet daily. Levothyroxine Sodium Oral : 88 mcg daily. Losartan Potassium Oral : Tablet 50 mg, 1 tablet daily. OTC Medications: Aspirin (available over the counter): take according to label instructions. Follow-up: Follow up with a chief building inspector- as recommended by your primary care physician. Understanding of the discharge instructions verbalized by patient. Follow-up with: Mendez Brown MD, [facility], , [address] [place] [address] Follow up Saturday in three days. Call for an appointment. ADDITIONAL INFORMATION Chest Pain, Uncertain Cause Chest pain can happen for a number of reasons. Sometimes the cause can not be determined. If yourcondition does not seem serious, and your pain does not appear to be coming from your heart, your doctor may recommend watching it closely. Sometimes the signs of a serious problem take more time to appear. Therefore, watch for the warning signs listed below. Home care After your visit, follow these recommendations: Rest today and avoid strenuous activity. Take any prescribed medicine as directed. Follow-up care Follow up with your doctor or this facility as instructed or if you do not start to feel better within 24 hours. Call 911 Get immediate medical attention if any of the following occur: A change in the type of pain: if it feels different, becomes more severe, lasts longer, or begins to spread into your shoulder, arm, neck, jaw or back Shortness of breath or increased pain with breathing Weakness, dizziness, or fainting Rapid heart beat Get prompt medical attention Call your doctor right away if any of the following occur: Cough with dark colored sputum (phlegm) or blood Fever of 100.4F(38C) or higher, or as directed by your health care provider Swelling, pain or redness in one leg Chest Wall Pain: Costochondritis The chest pain that you have had today is caused by Costochondritis. This condition is due to an inflammation of the cartilage joining the ribs to the breastbone. It is not caused by heart or lung problems. Although the exact cause for costochondritis is not known, it often occurs during times of emotional stress. It can be painful, but it is not dangerous. It usually disappears within one to two weeks, but may recur. Rarely, a more serious condition may cause symptoms similar to costochondritis; therefore, watch for the warning signs listed below. Home Care: If you feel that emotional stress is a cause of your condition, try to identify sources of that stress. It may not be obvious! Learn ways to deal with the stress in your life such as regular exercise, muscle relaxation, meditation, or simply taking time out for yourself. For more information about this, consult your doctor or go to a local bookstore and review books and tapes available on the subject of stress reduction. You may use acetaminophen (Tylenol) or ibuprofen (Motrin, Advil) to control pain, unless another pain medicine was prescribed. [ NOTE: If you have liver disease or ever had a stomach ulcer, talk with your doctor before using these medicines.] The use of heat (hot wet compress or heating pad) with or without local analgesic creams (Deep Heat Rub, Bassam Dupree) will be helpful to reduce pain. Follow Up with your doctor as directed or sooner if you do not start to improve within the next two days. Get Prompt Medical Attention if any of the following occur: A change in the type of pain: if it feels different, becomes more severe, lasts longer, or spreads into your shoulder, arm, neck, jaw or back Shortness of breath or increased pain with breathing Weakness, dizziness, or fainting Cough with dark colored sputum (phlegm) or blood Abdominal pain Dark red or black stools Fever of 100.4F (38C) or higher, or as directed by your healthcare provider You have been given the following additional information: Chest Pain, Uncertain Cause Chest Wall Pain, Costochondritis No strenuous activity. (Electronically signed by Arnie Gee MD 11/16/2016 18:54)
--- NOTE | 2016-11-23 11:41 | ED MAR SUMMARY ---
..... Medication Administration Record [facility] [address] [place] [address] Patient: RON MORTON Visit ID: [id number] 56y, F Weight: 63.5 kg Height/Length: 68 in BMI: 21.3 ALLERGIES: No Known Drug Allergy Given 17:14 11/16/2016 Bhumika Loera R.N. Medication Administered: ASPIRIN [PO], Dose: 325 mg Tablets PO. Medication Ordered: Aspirin PO 325 mg (NOW).
--- NOTE | 2016-11-23 11:41 | ED MED RECONCILIATION SUMMARY ---
Patient: RON MORTON Medication Reconciliation Report [facility] VisitID: [id number] [address] [place] [address] 56y, F Registration Date/Time: 11/16/2016 Weight: 63.5 kg Height/Length: 68 in. BMI: 21.3 ALLERGIES: No Known Drug Allergy The patient's Home Medications are listed below: CONTINUE TAKING THE FOLLOWING MEDICATIONS: Atorvastatin Calcium Oral (80 mg) 1 tablet, daily Chlorthalidone Oral (25 mg) 1 tablet, daily Levothyroxine Sodium Oral 88 mcg, daily Losartan Potassium Oral (50 mg) 1 tablet, daily The source(s) of the original Home Medication information: patient The following Medications were given to the patient in the Emergency Department: Aspirin [PO] PO 325 mg, administered: 11/16/2016 5:14:00 PM The following Medications were prescribed to the patient: Aspirin (available over the counter): take according to label instructions. -- Arnie Gee MD
== END 2016-11-16 18:50 | disposition home or self-care (01) ==
LOC: ED SRH 16:29
DX: R07.89 Other chest pain (principal); I10 Essential (primary) hypertension; E78.00 Pure hypercholesterolemia, unspecified; E03.9 Hypothyroidism, unspecified; Z79.899 Other long term (current) drug therapy
CPT/HCPCS: 90004; 90100; 90616; 91320; 91556; 92235; 92530; 92610; 93140; 94001; 94060; 95059